=== PATIENT | male | born 1945 | race Two or more races ===

== ENCOUNTER 2023-03-17 12:26 | Emergency (ER) | payer MEDICARE, MEDICAID, SELFPAY ==
--- NOTE | 2023-03-17 12:50 | ED_ITS ---
HPI - General Adult General: Stated complaint: pt needs prescription of oxycodone Time Seen by Provider: 03/17/23 12:36 Source: patient Mode of arrival: ambulatory Limitations: no limitations History of Present Illness: 78-year-old male chronic pain he moved here from [place] to live with his daughter he had forgot his oxycodone in [place] his daughter states there getting it filled on Sunday but he has no pain meds until then and she is worried that he is going to withdrawal he has no complaints currently. Denies any fever or vomiting. Associated symptoms: Deny chest pain, dyspnea, headache(s) or rash Review of Systems Const: Reports: change in appetite ENMT: Denies: throat pain Card: Denies: chest pain Resp: Denies: dyspnea Musc: Reports: extremity pain Skin/Breast: Denies: rash Neuro: Denies: headache(s) PFSH ED PFSH: Social History (Updated 03/17/23 @ 12:52 by Juan Dickens MD) Substance/Drug Use: never Physical Exam Const: COMMON NORMALS: no acute distress and patient oriented x3 HENMT: COMMON NORMALS: normocephalic HEAD & SCALP: normocephalic Eye: COMMON NORMALS: conjunctivae normal CONJUNCTIVA: Yes conjunctivae normal Neck/C-Spine: COMMON NORMALS: supple Chest: COMMONS NORMALS: normal inspection of the chest Resp: COMMON NORMALS: normal respiratory effort Cardio: COMMON NORMALS: regular rate and regular rhythm RATE: regular rate RHYTHM: regular rhythm GI: INSPECTION: Yes normal to inspection Extremity: COMMON NORMALS: normal to inspection Neuro: COMMON NORMALS: patient oriented x3 Psych: COMMON NORMALS: mental status grossly normal MDM - General Adult Medical Decision Making Patient presents here does have a history of chronic pain he just moved here from [place] to live with his daughter and he forgot his oxycodone prescription and does not get it till Sunday we will fill him 14 tabs to get him through till Sunday he is well-appearing here no withdrawals he is stable for discharge. Discharge Plan Discharge Patient Disposition: Home Clinical Impression: Medication refill Condition: Stable Prescriptions: New oxycodone-acetaminophen [Percocet] 10-325 mg tablet 1 tab PO Q8H PRN (Reason: pain) Qty: 14 0RF Discharge Orders: Discharge ED (Routine); Ordered 03/17/23 Ordered By: Juan Dickens Discharge Diet: Advance as tolerated Discharge Activity: Resume usual activity Patient Instructions: Medicine Refill (ED) Coding Level of Care Code ED Assembler Installer General for Jenni Santana
[2023-03-17 12:55] VITALS: BP 144/66; PULSE 88; RESP 16; O2SAT 97
[2023-03-17 12:59] VITALS: RESP 18
[2023-03-17] MEDS: oxyCODONE-APAP 10-325 mg Tablet 1 TAB PO (12:59)
--- NOTE | 2023-03-28 13:43 | DCPLANNER ---
Addendum entered by Virginia Obando 04/05/23 10:09: Patient had an appointment scheduled at [facility] - patient did attend appointment. Original Note: TCM called patient due to no primary care physician - patient was established at [facility] with Dr. Mcconnell for Monday, April 03, [address] Mcconnell. Patient is aware of appointment.
== END 2023-03-17 13:03 | disposition home or self-care (01) ==
PROVIDERS: Emergency Provider Emergency Medicine
DX: Z76.0 Encounter for issue of repeat prescription (principal); M25.512 Pain in left shoulder; G89.29 Other chronic pain
CPT/HCPCS: 99283; 99284

== ENCOUNTER 2023-03-25 16:10 | Emergency (ER) | payer MEDICARE, MEDICAID, SELFPAY ==
[2023-03-25 16:30] VITALS: BP 147/69; PULSE 83; RESP 14; TEMP 36.5; O2SAT 100; BMI 33.7
--- NOTE | 2023-03-25 16:32 | ED_ITS ---
HPI - General Adult General: Stated complaint: Out of medicine Time Seen by Provider: 03/25/23 16:13 Source: patient Mode of arrival: ambulatory Limitations: no limitations History of Present Illness: 78-year-old male who is here with chronic pain. He just moved here from [place] I saw him little over a week ago he had needed a refill for his Percocet the left but [place] he had had an appointment set up with a PCP here on Sunday to feel that a new prescription but they canceled it and she rescheduled it for next week he had ran out he states that he is having pain denies any worsening improving factors. Associated symptoms: Deny chest pain, dyspnea, headache(s) or rash Review of Systems Const: Denies: fever(s) Card: Denies: chest pain Resp: Denies: dyspnea GI: Denies: abdominal pain Musc: Reports: back pain and extremity pain Skin/Breast: Denies: rash Neuro: Denies: headache(s) PFSH ED PFSH: Social History Substance/Drug Use: never Physical Exam Const: COMMON NORMALS: no acute distress and patient oriented x3 HENMT: COMMON NORMALS: normocephalic HEAD & SCALP: normocephalic Eye: COMMON NORMALS: conjunctivae normal CONJUNCTIVA: Yes conjunctivae normal Neck/C-Spine: COMMON NORMALS: supple Chest: COMMONS NORMALS: normal inspection of the chest Resp: COMMON NORMALS: normal respiratory effort Cardio: COMMON NORMALS: regular rate RATE: regular rate GI: INSPECTION: Yes normal to inspection Extremity: COMMON NORMALS: normal to inspection Neuro: COMMON NORMALS: patient oriented x3 Psych: COMMON NORMALS: mental status grossly normal MDM - General Adult Medical Decision Making Patient presents here needing a medication refill he did have his appointment rescheduled from his PCP was supposed to be this week and he is now out of his Percocet he just moved here from [place] he has no signs of any drug-seeking behavior I will give him 1 week worth I told him this is last time that we will be able to refill his prescription here in the ER he understands this and he is got a follow-up. Discharge Plan Discharge Patient Disposition: Home Clinical Impression: Medication refill Condition: Stable Prescriptions: Continued oxycodone-acetaminophen [Percocet] 10-325 mg tablet 1 tab PO Q8H PRN (Reason: pain) Qty: 20 0RF Discharge Orders: Discharge ED (Routine); Ordered 03/25/23 Ordered By: Juan Dickens Discharge Diet: Advance as tolerated Discharge Activity: Resume usual activity Patient Instructions: Opioid Safety, Pain Management Coding Level of Care Code ED Excavator Backhoe Operator for Jenni Santana
--- NOTE | 2023-03-30 12:56 | DCPLANNER ---
TCM called patient due to no primary care physician - patient was established at [facility] with Dr. Mcconnell for Monday, April 03, [address] Mcconnell. Patient is aware of appointment.
== END 2023-03-25 16:39 | disposition home or self-care (01) ==
PROVIDERS: Emergency Provider Emergency Medicine
DX: Z76.0 Encounter for issue of repeat prescription (principal)
CPT/HCPCS: 99283

== ENCOUNTER → 2023-04-04 18:20 | Outpatient (BNVA) | payer MEDICARE, SELFPAY | PROVIDERS: PCP Family Medicine; Visit Provider Family Medicine | DX: M54.9 Dorsalgia, unspecified (principal); G89.29 Other chronic pain; N18.9 Chronic kidney disease, unspecified; Z98.890 Other specified postprocedural states; Z95.828 Presence of other vascular implants and grafts; Z95.1 Presence of aortocoronary bypass graft; E78.5 Hyperlipidemia, unspecified; I10 Essential (primary) hypertension; E11.9 Type 2 diabetes mellitus without complications | CPT/HCPCS: 80053; 80061; 83036; 84443; 85025 ==

== ENCOUNTER → 2023-05-10 11:47 | Outpatient (BNVA) | payer MEDICARE, SELFPAY | PROVIDERS: PCP Nurse Practitioner; Visit Provider Nurse Practitioner | DX: E11.9 Type 2 diabetes mellitus without complications (principal); I10 Essential (primary) hypertension; M54.9 Dorsalgia, unspecified; G89.29 Other chronic pain; E55.9 Vitamin D deficiency, unspecified; D64.9 Anemia, unspecified; R60.9 Edema, unspecified | CPT/HCPCS: 82306; 82607; 83550 ==

== ENCOUNTER 2023-05-18 15:22 | Outpatient (CLI) | payer MEDICARE, MEDICAID, SELFPAY ==
--- NOTE | 2023-05-18 15:30 | USCV_ITS ---
Lucas Bautista Age: 78 Gender: M : 1945 Exam Date: 05/18/2023 15:55 Ordering Phys: Chacha Menendez Technologist: WAYLON Exam Location: [facility] [place] Indication: bruit Risk Factors: Previous Vascular Surgery: Right Brachial BP: / Left Brachial BP: / Right Left Velocity (cm/s) Spectral Plaque Velocity (cm/s) Spectral Plaque Syst/Diast Broadening Syst/Diast Broadening 69.20/ 10.60 Prox CCA 103.60/ 16.50 68.20/ 10.60 Mid CCA 93.20 / 22.10 71.10/ 10.20 Distal CCA 82.70 / 8.70 88.40/ 15.40 Prox ICA 128.60/ 31.40 139.50/23.00 Mid ICA 172.50/ 42.30 91.10/ 21.00 Distal ICA 180.80/ 39.70 89.40 ECA 77.90 1.96 ICA/CCA 1.74 Antegrade Vertebral Antegrade 68.40/ 12.10 cm/s 97.30/ 14.50 cm/s Bi Subclavian Bi 137.5 128.0 0 0 CONCLUSIONS Right ICA stenosis <50% proximal ICA and approximately 50% stenosis mid ICA. Moderate calcified atheromatous plaque right carotid bulb/ICA and mid ICA Left ICA stenosis 50-69% with increased velocities left mid ICA. Moderate calcified atheromatous plaque left carotid bulb/ICA and mid ICA Intimal thickening in the common carotid arteries and internal carotid arteries bilaterally. No significant flow right vertebral artery. Normal antegrade Doppler flow noted in the left vertebral artery. Boston Castellanos MD (Electronically Signed) Final Date: 18 May 2023 16:58 S
== END 2023-05-18 15:23 | disposition home or self-care (01) ==
PROVIDERS: PCP Nurse Practitioner; Visit Provider Nurse Practitioner
DX: I10 Essential (primary) hypertension (principal); R09.89 Other specified symptoms and signs involving the circulatory and respiratory systems
CPT/HCPCS: 93880

== ENCOUNTER → 2023-07-13 11:21 | Outpatient (BNVA) | payer MEDICARE, SELFPAY | PROVIDERS: PCP Nurse Practitioner; Visit Provider Nurse Practitioner Family | DX: I10 Essential (primary) hypertension (principal); R60.9 Edema, unspecified; E11.9 Type 2 diabetes mellitus without complications; E55.9 Vitamin D deficiency, unspecified; E78.5 Hyperlipidemia, unspecified; J44.9 Chronic obstructive pulmonary disease, unspecified; M79.89 Other specified soft tissue disorders; I25.10 Atherosclerotic heart disease of native coronary artery without angina pectoris; Z95.5 Presence of coronary angioplasty implant and graft; Z95.1 Presence of aortocoronary bypass graft; M54.9 Dorsalgia, unspecified; G89.29 Other chronic pain; N18.9 Chronic kidney disease, unspecified | CPT/HCPCS: 80053; 80061; 82306; 83036; 84443; 85025 ==

== ENCOUNTER → 2023-08-30 16:00 | Outpatient (BNVA) | payer MEDICARE, SELFPAY | PROVIDERS: PCP Nurse Practitioner; Visit Provider Nurse Practitioner Family | DX: I10 Essential (primary) hypertension (principal) | CPT/HCPCS: 80048 ==

== ENCOUNTER → 2023-09-04 10:49 | Outpatient (BNVA) | payer MEDICARE, MEDICAID, SELFPAY | PROVIDERS: PCP Nurse Practitioner; Visit Provider Nurse Practitioner | DX: Z95.1 Presence of aortocoronary bypass graft (principal); J44.9 Chronic obstructive pulmonary disease, unspecified | CPT/HCPCS: 71046 ==

== ENCOUNTER → 2023-11-09 10:49 | Outpatient (BNVA) | payer MEDICARE, MEDICAID, SELFPAY | PROVIDERS: PCP Nurse Practitioner; Referring Provider Dermatology; Visit Provider Student in an Organized Health Care Education/Training Program | DX: M75.102 Unspecified rotator cuff tear or rupture of left shoulder, not specified as traumatic; M12.812 Other specific arthropathies, not elsewhere classified, left shoulder | CPT/HCPCS: 73030; 99204 ==

== ENCOUNTER → 2023-11-15 11:43 | Outpatient (BNVA) | payer MEDICARE, MEDICAID, SELFPAY | PROVIDERS: PCP Nurse Practitioner; Visit Provider Nurse Practitioner | DX: E55.9 Vitamin D deficiency, unspecified (principal); E11.9 Type 2 diabetes mellitus without complications; R60.9 Edema, unspecified; I10 Essential (primary) hypertension; J44.9 Chronic obstructive pulmonary disease, unspecified; D64.9 Anemia, unspecified | CPT/HCPCS: 80053; 82306; 83036; 83880; 85025 ==

== ENCOUNTER → 2024-01-16 08:55 | Outpatient (BNVA) | payer MEDICARE, MEDICAID, SELFPAY | PROVIDERS: PCP Nurse Practitioner; Visit Provider Nurse Practitioner | DX: I10 Essential (primary) hypertension (principal); N18.9 Chronic kidney disease, unspecified; E11.9 Type 2 diabetes mellitus without complications; E55.9 Vitamin D deficiency, unspecified | CPT/HCPCS: 80048; 80053; 81003; 82306; 83036; 83735; 84100; 84550 ==

== ENCOUNTER → 2024-02-05 09:44 | Outpatient (BNVA) | payer MEDICARE, MEDICAID, SELFPAY | PROVIDERS: PCP Nurse Practitioner; Visit Provider Nurse Practitioner | DX: I10 Essential (primary) hypertension (principal); E11.65 Type 2 diabetes mellitus with hyperglycemia | CPT/HCPCS: 80061; 85025 ==

== ENCOUNTER → 2024-02-06 10:52 | Outpatient (BNVA) | payer MEDICARE, MEDICAID, SELFPAY | PROVIDERS: PCP Nurse Practitioner; Visit Provider Nurse Practitioner | DX: E11.65 Type 2 diabetes mellitus with hyperglycemia (principal); I25.10 Atherosclerotic heart disease of native coronary artery without angina pectoris; Z95.5 Presence of coronary angioplasty implant and graft; E11.9 Type 2 diabetes mellitus without complications; J44.9 Chronic obstructive pulmonary disease, unspecified; R39.11 Hesitancy of micturition; E55.9 Vitamin D deficiency, unspecified | CPT/HCPCS: 81000 ==

== ENCOUNTER → 2024-03-07 10:00 | Outpatient (BNVA) | payer MEDICARE, MEDICAID, SELFPAY | PROVIDERS: PCP Nurse Practitioner; Visit Provider Nurse Practitioner | DX: I10 Essential (primary) hypertension (principal); E11.65 Type 2 diabetes mellitus with hyperglycemia | CPT/HCPCS: 80048 ==

== ENCOUNTER → 2024-04-08 15:00 | Outpatient (BNVA) | payer MEDICARE, MEDICAID, SELFPAY | PROVIDERS: PCP Nurse Practitioner; Visit Provider Student in an Organized Health Care Education/Training Program | DX: M75.102 Unspecified rotator cuff tear or rupture of left shoulder, not specified as traumatic (principal); M12.812 Other specific arthropathies, not elsewhere classified, left shoulder | CPT/HCPCS: 20610; 99214; J3301 ==

== ENCOUNTER 2024-04-16 06:00 | Outpatient (RCR) | payer MEDICARE, MEDICAID, SELFPAY | END 2024-04-27 23:59 | disposition home or self-care (01) | LOC: APT 06:00 | PROVIDERS: PCP Nurse Practitioner; Visit Provider Student in an Organized Health Care Education/Training Program | DX: Z98.890 Other specified postprocedural states (principal) | CPT/HCPCS: 97110; 97161 ==

== ENCOUNTER → 2024-04-23 10:34 | Outpatient (BNVA) | payer MEDICARE, MEDICAID, SELFPAY | PROVIDERS: PCP Nurse Practitioner; Visit Provider Nurse Practitioner | DX: E11.65 Type 2 diabetes mellitus with hyperglycemia (principal); E11.9 Type 2 diabetes mellitus without complications; E55.9 Vitamin D deficiency, unspecified; R39.11 Hesitancy of micturition; J44.9 Chronic obstructive pulmonary disease, unspecified; I25.10 Atherosclerotic heart disease of native coronary artery without angina pectoris; Z95.5 Presence of coronary angioplasty implant and graft | CPT/HCPCS: 80048; 81000; 82306; 82607; 83036 ==

== ENCOUNTER 2024-05-21 11:04 | Outpatient (CLI) | payer MEDICARE, MEDICAID, SELFPAY ==
--- NOTE | 2024-05-21 11:15 | USCV_ITS ---
Lucas Bautista Age: 79 Gender: M : 1945 Exam Date: 05/21/2024 11:16 Ordering Phys: Chacha Menendez Technologist: CT Exam Location: [facility] [place] Indication: Dyspnea BP: 152 / 72 HR: 59 Rhythm: Sinus Technical Quality: Adequate MEASUREMENTS (Male / Female) Normal Values 2D ECHO LVOT Diameter 2.0 cm LV Ejection Fraction MOD 4C 39.7 % LV Ejection Fraction MOD 2C 18.5 % LV Ejection Fraction 2C AL 20.4 % LA Diameter 4.6 cm RA Systolic Volume 4C AL 36.3 ml RA Systolic Volume 4C MOD 35.7 ml LA Sys Volume AL 61.2 cm cubed LA Sys Volume Index AL 29.7 cm cubed/m squared Aorta at Sinotubular Diameter 2.2 cm M-MODE LA Ao Ratio MM 1.4 AV Cusp Separation MM 1.3 cm DOPPLER AV Peak Velocity 196.0 cm/s LVOT Peak Velocity 106.0 cm/s AV Area Cont Eq vti 2.0 cm squared AV Area Cont Eq pk 1.8 cm squared MV Peak Velocity 91.0 cm/s MV Area PHT 3.5 cm squared Mitral E to A Ratio 0.6 TR Peak Velocity 296.0 cm/s TR Peak Gradient 35.0 mmHg TV Peak E Velocity 74.0 cm/s Right Atrial Pressure 3.0 mmHg Pulmonary Artery Systolic Pressu 38.0 mmHg PV Peak Velocity 116.5 cm/s FINDINGS Left Ventricle Severe diffuse hypokinesis of the LV ejection fraction of 25- 30%, visual.Grade I/IV diastolic dysfunction (abnormal relaxation filling pattern), normal to mildly elevated filling pressures. Mildly increased left ventricular cavity size. Right Ventricle The right ventricle is normal in size and function. Right Atrium The right atrium is normal in size. Left Atrium Mildly increased left atrial size. Mitral Valve Trace mitral valve regurgitation. Aortic Valve Thickened aortic valve. Aortic valve sclerosis. Tricuspid Valve No gross abnormalities noted Pulmonic Valve No gross abnormalities noted Pericardium Normal pericardium without effusion. Aorta Normal ascending aorta dimension. IVC Inferior vena cava not visualized. CONCLUSIONS Severe diffuse hypokinesis of the LV ejection fraction of 25- 30%, visual. Grade I/IV diastolic dysfunction (abnormal relaxation filling pattern), normal to mildly elevated filling pressures. Mildly dilated left ventricle Mildly increased left atrial size. Trace mitral valve regurgitation. Aortic valve sclerosis. There is no pericardial effusion. There are no intracardiac masses. No similar previous studies are available for comparison Dr Cristina Hicks MD [facility] (Electronically Signed) Final Date: 22 May 2024 01:35 S
== END 2024-05-21 11:05 | disposition home or self-care (01) ==
LOC: RAD 11:04
PROVIDERS: PCP Nurse Practitioner; Visit Provider Nurse Practitioner
DX: R06.09 Other forms of dyspnea (principal); I51.7 Cardiomegaly; I35.8 Other nonrheumatic aortic valve disorders; I35.0 Nonrheumatic aortic (valve) stenosis
CPT/HCPCS: 93306

== ENCOUNTER → 2024-06-05 11:46 | Outpatient (BNVA) | payer MEDICARE, MEDICAID, SELFPAY | PROVIDERS: PCP Nurse Practitioner; Visit Provider Nurse Practitioner | DX: R94.30 Abnormal result of cardiovascular function study, unspecified (principal); E11.65 Type 2 diabetes mellitus with hyperglycemia | CPT/HCPCS: 80048; 81000 ==

== ENCOUNTER → 2024-06-17 09:04 | Outpatient (BNVA) | payer MEDICARE, MEDICAID, SELFPAY | PROVIDERS: PCP Nurse Practitioner; Visit Provider Nurse Practitioner | DX: N18.9 Chronic kidney disease, unspecified (principal); E55.9 Vitamin D deficiency, unspecified; D50.9 Iron deficiency anemia, unspecified | CPT/HCPCS: 80048; 81003; 82040; 82310; 82570; 82728; 83550; 83735; 83970; 84100; 84550; 85018 ==

== ENCOUNTER → 2024-07-17 10:09 | Outpatient (BNVA) | payer MEDICARE, MEDICAID, SELFPAY | PROVIDERS: PCP Nurse Practitioner; Visit Provider Student in an Organized Health Care Education/Training Program | DX: M75.102 Unspecified rotator cuff tear or rupture of left shoulder, not specified as traumatic (principal); M12.812 Other specific arthropathies, not elsewhere classified, left shoulder | CPT/HCPCS: 20610; 99213; J3301 ==

== ENCOUNTER → 2024-08-21 13:21 | Outpatient (BNVA) | payer MEDICARE, MEDICAID, SELFPAY | PROVIDERS: PCP Nurse Practitioner; Visit Provider Nurse Practitioner | DX: E11.9 Type 2 diabetes mellitus without complications (principal) | CPT/HCPCS: 80053; 80061; 81000; 82607; 83036 ==

== ENCOUNTER → 2024-10-06 09:16 | Outpatient (BNVA) | payer MEDICARE, MEDICAID, SELFPAY | PROVIDERS: PCP Nurse Practitioner; Visit Provider Nurse Practitioner | DX: E11.65 Type 2 diabetes mellitus with hyperglycemia (principal); I25.10 Atherosclerotic heart disease of native coronary artery without angina pectoris; E55.9 Vitamin D deficiency, unspecified; N17.9 Acute kidney failure, unspecified; N18.9 Chronic kidney disease, unspecified; Z94.0 Kidney transplant status; Z95.5 Presence of coronary angioplasty implant and graft | CPT/HCPCS: 80048; 81003; 82043; 82306; 82310; 83036; 83735; 83970; 84100 ==

== ENCOUNTER 2024-10-10 16:48 | Outpatient (CLI) | payer MEDICARE, MEDICAID, SELFPAY ==
--- NOTE | 2024-10-10 17:02 | US_ITS ---
WS: [id number] RENAL ULTRASOUND URINARY BLADDER ULTRASOUND HISTORY: CHRONIC KIDNEY DISEASE; UNSPECIFIED CKD STAGE COMPARISON: None available. TECHNIQUE: 2-D and color Doppler imaging of the kidney submitted. Right kidney: 8.2 cm x 4.7 cm x 5.3 cm. Mild atrophy with diffuse cortical thinning and mild increased echogenicity. No hydronephrosis or danisha id mass. Cortical cyst mid kidney measures 1.5 x 1.6 x 1.1 cm. Left kidney: 7.5 cm x 4.1 cm x 4.2 cm. Moderate atrophy with marked increased echogenicity. Poorly visualized kidney. Diffuse severe cortica l thinning. No hydronephrosis or solid mass identified. Aorta: Normal. Urinary Bladder: Bladder is only minimally distended. Prevoid volume: 72 mm. Post void volume: Not measurable. US/US renal BI with PV bladder IMPRESSION: 1. Mild RIGHT and moderate LEFT renal atrophy. 2. Severe diffuse cortical thinning and chronic medical renal disease, greates t LEFT kidney. 3. No measurable post void urinary bladder residual.
== END 2024-10-10 16:49 | disposition home or self-care (01) ==
LOC: RAD 16:52
PROVIDERS: PCP Nurse Practitioner; Visit Provider Nurse Practitioner
DX: N18.9 Chronic kidney disease, unspecified (principal)
CPT/HCPCS: 76770; 76857

== ENCOUNTER → 2024-11-06 14:00 | Outpatient (BNVA) | payer MEDICARE, MEDICAID, SELFPAY | PROVIDERS: PCP Nurse Practitioner; Visit Provider Nurse Practitioner | DX: N17.9 Acute kidney failure, unspecified (principal); D50.9 Iron deficiency anemia, unspecified; N18.9 Chronic kidney disease, unspecified; Z94.0 Kidney transplant status | CPT/HCPCS: 80048; 81003; 82043; 82310; 82570; 82728; 83550; 83735; 83970; 84100; 84156; 84550; 85018 ==

== ENCOUNTER → 2024-11-13 14:00 | Outpatient (BNVA) | payer MEDICARE, MEDICAID, SELFPAY | PROVIDERS: PCP Nurse Practitioner; Visit Provider Student in an Organized Health Care Education/Training Program | DX: M75.102 Unspecified rotator cuff tear or rupture of left shoulder, not specified as traumatic (principal); M12.812 Other specific arthropathies, not elsewhere classified, left shoulder | CPT/HCPCS: 20610; 99213; J3301 ==

== ENCOUNTER → 2025-02-18 10:03 | Outpatient (BNVA) | payer MEDICARE, MEDICAID, SELFPAY | PROVIDERS: PCP Nurse Practitioner; Visit Provider Nurse Practitioner | DX: N18.9 Chronic kidney disease, unspecified (principal); D50.9 Iron deficiency anemia, unspecified; E11.65 Type 2 diabetes mellitus with hyperglycemia; Z94.0 Kidney transplant status | CPT/HCPCS: 80061; 81003; 82310; 82565; 82575; 82728; 83036; 83550; 83735; 83970; 84100; 84156; 84550; 85025 ==

== ENCOUNTER → 2025-02-24 13:22 | Outpatient (BNVA) | payer MEDICARE, MEDICAID, SELFPAY | PROVIDERS: PCP Nurse Practitioner; Visit Provider Student in an Organized Health Care Education/Training Program | DX: M75.102 Unspecified rotator cuff tear or rupture of left shoulder, not specified as traumatic (principal); M12.812 Other specific arthropathies, not elsewhere classified, left shoulder | CPT/HCPCS: 20610; 99213 ==

== ENCOUNTER → 2025-02-25 10:26 | Outpatient (BNVA) | payer MEDICARE, MEDICAID, SELFPAY | PROVIDERS: PCP Nurse Practitioner; Visit Provider Nurse Practitioner | DX: N18.9 Chronic kidney disease, unspecified (principal) | CPT/HCPCS: 80048 ==

== ENCOUNTER 2025-04-24 16:48 | Outpatient (CLI) | payer MEDICARE, MEDICAID, SELFPAY ==
--- NOTE | 2025-04-24 17:00 | USR_ITS ---
PROCEDURE INFORMATION: Exam: US Duplex Right Lower Extremity Veins, Limited Exam date and time: 04/24/2025 5:06 PM Age: 80 years old Clinical indication: Edema, localized; Lower extremity, right; Additional info: R60.0 - localized edema TECHNIQUE: Imaging protocol: Real-time duplex ultrasound of the right extremity with 2-D wong scale, color Doppler flow and spectral waveform analysis including responses to compression and other maneuvers (when performed) with image documentation. Limited exam was focused on the right lower extremity veins. COMPARISON: US renal BI with PV bladder 10/10/2024 5:23 PM FINDINGS: Right deep veins: Unremarkable. The common femoral, femoral, proximal profunda femoral and popliteal veins are patent without thrombus. Normal Doppler waveforms. Normal compressibility and/or augmentation response. Superficial veins: Greater saphenous vein at the saphenofemoral junction is patent without thrombus. Soft tissues: Unremarkable. US/[place] [id number] IMPRESSION: No evidence of deep vein thrombosis.
== END 2025-04-24 16:49 | disposition home or self-care (01) ==
PROVIDERS: PCP Nurse Practitioner; Visit Provider Nurse Practitioner
DX: R60.0 Localized edema (principal)
CPT/HCPCS: 93971

== ENCOUNTER → 2025-05-13 11:33 | Outpatient (BNVA) | payer MEDICARE, MEDICAID, SELFPAY | PROVIDERS: PCP Nurse Practitioner; Visit Provider Nurse Practitioner | DX: E11.9 Type 2 diabetes mellitus without complications (principal); E11.65 Type 2 diabetes mellitus with hyperglycemia | CPT/HCPCS: 80053; 81000; 83036 ==

== ENCOUNTER 2025-07-29 13:24 | Outpatient (CLI) | payer MEDICARE, MEDICAID, SELFPAY ==
--- NOTE | 2025-07-29 13:30 | XRR_ITS ---
PROCEDURE INFORMATION: Exam: XR Lumbosacral Spine Exam date and time: 07/29/2025 1:42 PM Age: 80 years old Clinical indication: Low back pain; Prior surgery; Surgery date: 6+ months; Surgery type: Open heart, pacemaker, lumar fusion; Additional info: J44.9 - chronic obstructive pulmonary disease, unspecified TECHNIQUE: Imaging protocol: Radiologic exam of the lumbosacral spine. Views: 2 or 3 views. COMPARISON: No relevant prior studies available. FINDINGS: Bones/joints: There is straightening of the normal lumbar lordosis. No significant subluxation. There are postsurgical changes from L2 through S1 with bilateral pedicle screws and connecting bars in place. The right-sided S1 pedicle screw is broken. Disc spacers are present from L2-L3 through L5-S1. There is moderate to marked disc space narrowing at L1-L2 with endplate sclerosis and osteophytosis. Diffuse osteopenia is present. Soft tissues: There is atherosclerotic calcification of the abdominal aorta. XR/XR lumbar spine 2-3V* [id number] IMPRESSION: 1. Postsurgical changes from L2 through S1 with bilateral pedicle screws and disc spacers in place. The right S1 pedicle screw is broken. 2. Straightening of the normal lumbar lordosis. 3. Moderate to severe degenerative disc disease and spondylosis at L1-L2.
--- NOTE | 2025-07-29 13:30 | XRR_ITS ---
PROCEDURE INFORMATION: Exam: XR Left Knee Exam date and time: 07/29/2025 1:42 PM Age: 80 years old Clinical indication: Pain; Knee; Left; Additional info: M25.562 - pain in left knee TECHNIQUE: Imaging protocol: Radiologic exam of the left knee. Views: 3 views. COMPARISON: No relevant prior studies available. FINDINGS: Bones/joints: There is a total knee prosthesis in place. There is no significant lucency at the metal bone interface to suggest loosening or infection. No acute fracture is detected. Soft tissues: Vascular calcification is noted. There are surgical clips projecting over the medial soft tissues of the visualized lower leg. XR/XR knee LT 3V* [id number] IMPRESSION: 1. Status post left total knee arthroplasty. 2. No evidence of fracture or hardware loosening.
--- NOTE | 2025-07-29 13:30 | XRR_ITS ---
PROCEDURE INFORMATION: Exam: XR Chest Exam date and time: 07/29/2025 1:42 PM Age: 80 years old Clinical indication: Condition or disease; Lung condition and disease; Copd; Prior surgery; Surgery date: 6+ months; Surgery type: Open heart, pacemaker, lumar fusion; Additional info: J44.9 - chronic obstructive pulmonary disease, unspecified TECHNIQUE: Imaging protocol: Radiologic exam of the chest. Views: 2 views. COMPARISON: CR XR chest 2V* [id number] 09/04/2023 10:47 AM FINDINGS: Tubes, catheters and devices: Pacemaker is again seen. Lungs: Patchy opacities are again seen at the lung bases bilaterally, most suggestive of parenchymal scar. No dense focal consolidation is seen. No significant pulmonary edema. Pleural spaces: No significant pleural effusion. No pneumothorax. Heart/Mediastinum: Normal in size. Mediastinal clips are noted. Bones/joints: There are degenerative changes throughout the thoracic spine. There is spinal hardware in the visualized upper lumbar spine. Sternotomy wires are noted. Other findings: None. XR/XR chest 2V* [id number] IMPRESSION: 1. Patchy bibasilar densities most suggestive of parenchymal scar. Similar findings were seen on the prior study. 2. Evidence of prior thoracic surgery with pacemaker in place. 3. No dense focal consolidation or luis congestive heart failure.
== END 2025-07-29 13:25 | disposition home or self-care (01) ==
LOC: RAD 13:30
PROVIDERS: PCP Nurse Practitioner; Visit Provider Nurse Practitioner
DX: E11.65 Type 2 diabetes mellitus with hyperglycemia (principal); M25.562 Pain in left knee; M47.816 Spondylosis without myelopathy or radiculopathy, lumbar region; E55.9 Vitamin D deficiency, unspecified; J44.9 Chronic obstructive pulmonary disease, unspecified; G95.89 Other specified diseases of spinal cord; M25.78 Osteophyte, vertebrae; M85.88 Other specified disorders of bone density and structure, other site; M51.369 Other intervertebral disc degeneration, lumbar region without mention of lumbar back pain or lower extremity pain; T84.216A Breakdown (mechanical) of internal fixation device of vertebrae, initial encounter; Y79.3 Surgical instruments, materials and orthopedic devices (including sutures) associated with adverse incidents
CPT/HCPCS: 71046; 72100; 73562; 80053; 80061; 81000; 82043; 82306

== ENCOUNTER 2025-09-16 10:47 | Outpatient (CLI) | payer MEDICARE, MEDICAID, SELFPAY ==
[2025-09-16 11:06] VITALS: PULSE 60; RESP 18; O2SAT 97
== END 2025-09-16 10:48 | disposition home or self-care (01) ==
LOC: RT 10:49
PROVIDERS: PCP Nurse Practitioner; Visit Provider Specialist
DX: I48.0 Paroxysmal atrial fibrillation (principal)
CPT/HCPCS: 94060; 94726; 94729; J7613

== ENCOUNTER → 2025-09-28 10:21 | Outpatient (BNVA) | payer MEDICARE, MEDICAID, SELFPAY | PROVIDERS: PCP Nurse Practitioner; Visit Provider Nurse Practitioner | DX: E55.9 Vitamin D deficiency, unspecified (principal); E11.65 Type 2 diabetes mellitus with hyperglycemia; N18.9 Chronic kidney disease, unspecified; E11.22 Type 2 diabetes mellitus with diabetic chronic kidney disease; Z94.0 Kidney transplant status | CPT/HCPCS: 80048; 81003; 82040; 82043; 82306; 82310; 82570; 82728; 83036; 83550; 83735; 83970; 84100; 84156; 84550; 85025 ==